=== PATIENT | female | born 1995 | race African-American/Black ===

== ENCOUNTER 2020-09-06 13:52 | Emergency (ER) | payer SELFPAY ==
[~2020-09-06] VITALS: Ht 160 cm; Wt 72.0 kg
[2020-09-06] MEDS ORDERED: IBUPROFEN 600MG TABLET PO ONE (14:15)
[2020-09-06] MEDS ORDERED: IBUP-2029 MT (14:32)
[2020-09-06 14:33] VITALS: BP 117/75
== END 2020-09-06 14:55 | disposition home or self-care (01) ==
LOC: ER 13:52
DX: M79.10 Myalgia, unspecified site (principal)
CPT/HCPCS: 81025; 99283